=== PATIENT | male | born 1975 | race Caucasian/White ===

== ENCOUNTER 2021-08-09 15:21 | Emergency (ER) | payer BC ==
[~2021-08-09 15:21] MED LIST: FLEXERIL 10 MG10 MG PO; MOBIC15 MG PO; PERCOCET 5/325 T1 EA PO
[2021-08-09 17:19] LABS: HEMOGLOBIN 15.9 gm/dl (14.0-17.5); RED BLOOD COUNT 4.9 M/UL (4.20-5.50); WHITE BLOOD COUNT 7.7 K/UL (4.5-11.0)
[2021-08-09 17:36] LABS: BUN/CREATININE RATIO 14 (0-10)
[2021-08-09 18:16] LABS: BORDETELLA PARAPERTUSSIS Not Detected (Not Detectd); BORDETELLA PERTUSSIS Not Detected (Not Detectd); CHLAMYDIA PNEUMONIAE Not Detected (Not Detectd); CORONAVIRUS HKU1 Not Detected (Not Detectd); CORONAVIRUS NL63 Not Detected (Not Detectd); CORONAVIRUS OC43 Not Detected (Not Detectd); CORONOAVIRUS 229E Not Detected (Not Detectd); HUMAN METAPNEUMOVIRUS Not Detected (Not Detectd); HUMAN RHINOVIRUS/ENTEROVIRUS Not Detected (Not Detectd); INFLUENZA A Not Detected (Not Detectd); INFLUENZA B Not Detected (Not Detectd); MYCOPLASMA PNEUMONIAE Not Detected (Not Detectd); PARAINFLUENZA VIRUS 1 Not Detected (Not Detectd); PARAINFLUENZA VIRUS 2 Not Detected (Not Detectd); PARAINFLUENZA VIRUS 3 Not Detected (Not Detectd); PARAINFLUENZA VIRUS 4 Not Detected (Not Detectd); RESPIRATORY SYNCYTIAL VIRUS Not Detected (Not Detectd)
[2021-08-09 19:30] LABS: SARS-CoV-2 NOT DETECTED (Not Detectd)
== END 2021-08-09 20:30 | disposition home or self-care (01) ==
LOC: ER1 15:21
PROVIDERS: Preventive Medicine Occupational Medicine
DX: E86.0 Dehydration (principal); B34.9 Viral infection, unspecified; E11.9 Type 2 diabetes mellitus without complications; Z20.822 Contact with and (suspected) exposure to COVID-19
CPT/HCPCS: 36600; 71045; 80053; 82803; 83605; 83880; 85025; 85652; 86140; 87040; 87633; 94664; 99285; J0696; J2930; J7030

== ENCOUNTER → 2021-09-23 | Outpatient (CLI) | payer BC | LOC: KOH-I 08-23 11:00 | DX: E29.1 Testicular hypofunction (principal); D69.6 Thrombocytopenia, unspecified; K76.0 Fatty (change of) liver, not elsewhere classified; K82.4 Cholesterolosis of gallbladder | CPT/HCPCS: 76705 ==

== ENCOUNTER → 2022-05-26 | Outpatient (CLI) | payer BC | LOC: SLEEP 21:30 | DX: G47.33 Obstructive sleep apnea (adult) (pediatric) (principal) | CPT/HCPCS: 95811 ==